=== PATIENT | female | born 1985 | race Caucasian/White ===

== ENCOUNTER 2023-07-18 10:45 | Outpatient (CLI) | payer OTHER ==
[2023-07-20 07:10] LABS: HIV SCREEN 4TH GENERATION Non Reactive (Non Reactive)
== END 2023-07-18 11:00 | disposition home or self-care (01) ==
LOC: LAB.N 10:45
PROVIDERS: ATTEND Physician Assistant Medical
DX: B37.0 Candidal stomatitis (principal)
CPT/HCPCS: 36415; 87389